=== PATIENT | male | born 1955 | race Caucasian/White ===

== ENCOUNTER 2018-06-18 00:55 | Emergency (ER) | payer BC ==
[~2018-06-18] VITALS: Ht 180.3 cm; Wt 72.4 kg
[2018-06-18 00:58] VITALS: BP 133/79
[2018-06-18] MEDS ORDERED: bacitracin 15gm ointment TP ONE (01:15)
[2018-06-18] MEDS ORDERED: LIDOcaine 1% 30ml preserv. free vial IJ ONE (01:15)
== END 2018-06-18 02:34 | disposition home or self-care (01) ==
LOC: ER 00:56
DX: S61.211A Laceration without foreign body of left index finger without damage to nail, initial encounter (principal); E78.00 Pure hypercholesterolemia, unspecified; W01.118A Fall on same level from slipping, tripping and stumbling with subsequent striking against other sharp object, initial encounter; Y93.89 Activity, other specified; Y92.89 Other specified places as the place of occurrence of the external cause; Y99.8 Other external cause status
CPT/HCPCS: 12001; 99283; J3490